=== PATIENT | male | born 1930 | race Caucasian/White ===

== ENCOUNTER 2017-05-18 17:36 | Emergency (ER) | payer MEDICARE ==
[~2017-05-18 17:36] MED LIST: AMI200 PO; DILCD120 PO; IRBE75TA4 PO; TOBOD OD; TOBOD OS; WARF-12 PO
--- NOTE | 2017-05-18 17:52 | ER Report ---
History and Physical Time Seen By MD: 17:51 Hx. of Stated Complaint: L SUBSTERNAL PAIN AND HEART BEATING FASTER, SLIGHT NAUSEA AND PALPITATIONS HPI/ROS CHIEF COMPLAINT: Epigastric pain HISTORY OF PRESENT ILLNESS: 86-year-old male patient presents to emergency room with complaint of epigastric pain. Patient states this been going on for the past 3 days. States he hasn't had any chest pain but feels like it is right in the epigastric region. He states that he's had no nausea, vomiting, chest pain, shortness of breath. States nothing seems to make the pain better or worse. He has not taken any medication for this. Patient states that he believes he has a history of atrial fibrillation, but is not currently taking any medication for it. States that he was on Coumadin in the past but had been stopped so he could take Plavix. He states that was stopped couple years ago by his asset accountant with nothing restarted. REVIEW OF SYSTEMS: Respiratory: No cough, no dyspnea. Cardiovascular: No chest pain, no palpitations. Gastrointestinal: As noted above Musculoskeletal: No back pain. Allergies: Coded Allergies: No Known Allergies (Verified Allergy, Mild, 10/02/07) Home Meds Reported Medications Multivitamin (MULTI VITAMIN DAILY) 1 Each Tablet, 1 EACH PO 05/18/17 Fluticasone Prop 50 Mcg Ns (FLONASE 50 MCG NS) 16 Gm [place].susp 05/18/17 Montelukast Sodium (MONTELUKAST SODIUM) 10 Mg Tablet 05/18/17 Tamsulosin Hcl (TAMSULOSIN HCL) 0.4 Mg Cap.er.24h 05/18/17 Metoprolol Succinate (METOPROLOL SUCCINATE) 25 Mg Tab.er.24h 05/18/17 Losartan Potassium (LOSARTAN POTASSIUM) 50 Mg Tablet 05/18/17 Tobramycin Sulf (Tobrex 0.3%) 5 Ml Soln, 1 DROP OS Q4H 1 drop to the left eye 4 times per day 10/03/07 Discontinued Reported Medications Atorvastatin Calcium (ATORVASTATIN CALCIUM) 20 Mg Tablet 05/18/17 Amiodarone Hcl (Cordarone) 200 Mg Tab, 200 MG PO take one tab 4 times per day for 6 days then one tab 3 times per day for 7 days then one tab 2 times per day for 7 days then one tab daily thereafter 10/03/07 Warfarin Sodium (Coumadin) 5 Mg Tablet, 5 MG PO DAILY 10/03/07 Diltiazem Hcl (Cardizem Cd) 120 Mg Capcr, 120 MG PO QDAY 10/03/07 Past Medical/Surgical History Patient has a past medical history of atrial fibrillation, hypertension, prostate cancer, arthritis. Patient has a surgical history of cryotherapy for his prostate cancer. Reviewed Nurses Notes: Yes Constitutional Vital Sign - Last 24 Hours 05/18/17 05/18/17 05/18/17 05/18/17 17:46 17:46 17:51 18:00 Temp 98.8 Pulse 94 86 Resp 20 27 B/P (MAP) 185/99 185/99 (127) 133/69 (90) Pulse Ox 92 94 O2 Delivery Room Air 05/18/17 05/18/17 05/18/17 05/18/17 18:06 18:21 18:30 18:36 Pulse 74 71 ??? Resp 21 32 B/P (MAP) ???/??? (0765) Pulse Ox 95 93 05/18/17 05/18/17 05/18/17 05/18/17 18:41 18:49 18:56 19:00 Pulse 71 83 B/P (MAP) 147/83 (104) 185/96 (125) Pulse Ox 94 94 05/18/17 05/18/17 05/18/17 05/18/17 19:11 19:26 19:30 19:41 Pulse 74 78 79 B/P (MAP) 155/86 (109) Pulse Ox 91 92 93 05/18/17 05/18/17 19:48 19:54 Pulse 85 Resp 16 B/P (MAP) 158/79 (105) 159/89 (112) Pulse Ox 95 O2 Delivery Room Air Intake and Output 05/18/17 05/18/17 05/19/17 15:00 23:00 07:00 Intake Total 1000 ml Balance 1000 ml Physical Exam General Appearance: The patient is alert, has no immediate need for airway protection and no current signs of toxicity. ENT: Tympanic membranes are pearly-dowling, auditory canals are patent, mucous membranes are moist. Respiratory: Chest is non tender, lungs are clear to auscultation. Cardiac: regular rate and rhythm Gastrointestinal: Abdomen is soft and non tender, no masses, bowel sounds are hyperactive. Musculoskeletal: Neck: Neck is supple and non tender. Extremities have full range of motion and are non tender. Skin: No rashes or lesions. DIFFERENTIAL DIAGNOSIS: After history and physical exam differential diagnosis was considered for gastroenteritis, [place], pneumonia. Medical Decision Making Data Points Result Diagram: 05/18/175 05/18/171754 Laboratory Hematology Test 05/18/17 17:55 Red Blood Count 3.97 M/uL (4.00-5.60) Mean Corpuscular Volume 97.5 fL (80.0-96.0) Mean Corpuscular Hemoglobin 32.6 pg (26.0-33.0) Mean Corpuscular Hemoglobin Concent 33.4 g/dL (32.0-36.0) Red Cell Distribution Width 13.1 % (11.5-14.5) Mean Platelet Volume 8.3 fL (7.2-11.1) Neutrophils (%) (Auto) 67.0 % (39.4-72.5) Lymphocytes (%) (Auto) 19.7 % (17.6-49.6) Monocytes (%) (Auto) 11.6 % (4.1-12.4) Eosinophils (%) (Auto) 1.2 % (0.4-6.7) Basophils (%) (Auto) 0.5 % (0.3-1.4) Nucleated RBC Relative Count (auto) 0.0 /100WBC Neutrophils # (Auto) 5.0 K/uL (2.0-7.4) Lymphocytes # (Auto) 1.5 K/uL (1.3-3.6) Monocytes # (Auto) 0.9 K/uL (0.3-1.0) Eosinophils # (Auto) 0.1 K/uL (0.0-0.5) Basophils # (Auto) 0.0 K/uL (0.0-0.1) Nucleated RBC Absolute Count (auto) 0.00 K/uL Sodium Level 139 mmol/L (137-145) Potassium Level 4.8 mmol/L (3.5-5.0) Chloride Level 104 mmol/L (98-107) Carbon Dioxide Level 25 mmol/L (22-30) Blood Urea Nitrogen 33 mg/dl (9-21) Creatinine 1.30 mg/dl (0.66-1.25) Glomerular Filtration Rate Calc 52.1 Random Glucose 121 mg/dl (75-110) Calcium Level 10.3 mg/dl (8.4-10.2) Total Bilirubin 0.5 mg/dl (0.2-1.3) Aspartate Amino Transf (AST/SGOT) 25 U/L (0-35) Alanine Aminotransferase (ALT/SGPT) 34 U/L (0-56) Alkaline Phosphatase 72 U/L (0-126) Troponin I 0.015 ng/ml Total Protein 7.5 gm/dl (6.3-8.2) Albumin 4.2 g/dl (3.5-5.0) Chemistry Test 05/18/17 17:55 White Blood Count 7.5 k/uL (4.5-11.0) Red Blood Count 3.97 M/uL (4.00-5.60) Hemoglobin 12.9 g/dL (14.0-18.0) Hematocrit 38.6 % (42.0-52.0) Mean Corpuscular Volume 97.5 fL (80.0-96.0) Mean Corpuscular Hemoglobin 32.6 pg (26.0-33.0) Mean Corpuscular Hemoglobin Concent 33.4 g/dL (32.0-36.0) Red Cell Distribution Width 13.1 % (11.5-14.5) Platelet Count 183 K/uL (150-450) Mean Platelet Volume 8.3 fL (7.2-11.1) Neutrophils (%) (Auto) 67.0 % (39.4-72.5) Lymphocytes (%) (Auto) 19.7 % (17.6-49.6) Monocytes (%) (Auto) 11.6 % (4.1-12.4) Eosinophils (%) (Auto) 1.2 % (0.4-6.7) Basophils (%) (Auto) 0.5 % (0.3-1.4) Nucleated RBC Relative Count (auto) 0.0 /100WBC Neutrophils # (Auto) 5.0 K/uL (2.0-7.4) Lymphocytes # (Auto) 1.5 K/uL (1.3-3.6) Monocytes # (Auto) 0.9 K/uL (0.3-1.0) Eosinophils # (Auto) 0.1 K/uL (0.0-0.5) Basophils # (Auto) 0.0 K/uL (0.0-0.1) Nucleated RBC Absolute Count (auto) 0.00 K/uL Glomerular Filtration Rate Calc 52.1 Calcium Level 10.3 mg/dl (8.4-10.2) Total Bilirubin 0.5 mg/dl (0.2-1.3) Aspartate Amino Transf (AST/SGOT) 25 U/L (0-35) Alanine Aminotransferase (ALT/SGPT) 34 U/L (0-56) Alkaline Phosphatase 72 U/L (0-126) Troponin I 0.015 ng/ml Total Protein 7.5 gm/dl (6.3-8.2) Albumin 4.2 g/dl (3.5-5.0) EKG/Imaging EKG Interpretation 12 lead EKG: Rhythm: Atrial fibrillation [place]: normal QRS: Left bundle branch block ST segments: normal Imaging Abdomen 2 views: HISTORY: Abdominal pain x3 days. COMPARISON: None. FINDINGS: Air is present in both large and small bowel without specific dilatation. There are no air-fluid levels present. No free air is identified. Moderate to large volume of stool is present throughout the colon, query symptoms of constipation. There are no obvious calcifications over the kidneys or along the expected course of the ureters. Degenerative changes are present in the lumbar spine. Scoliosis convex to the right is present. Right hip prosthesis is in place with anatomic alignment of the components. IMPRESSION: 1. Gas present in both large and small bowel without evidence of obstruction. 2. Moderate to large amount stool in the colon, query symptoms of constipation. Report Dictated By: Swathi Wall MD at 05/18/2017 7:05 PM Report E-Signed By: Swathi Wall MD at 05/18/2017 7:07 PM Chest 2 views: HISTORY: Chest pain. COMPARISON: 09/12/2013 FINDINGS: Frontal and lateral chest: Heart size is within normal limits. Coronary stent is noted. Mediastinal contours are normal. Aorta is ectatic and there are atherosclerotic changes. Appearance is similar to the prior study. There is no focal infiltrate, pleural effusion or pneumothorax. Pulmonary vasculature is normal. Minimal streaky left basilar opacity is likely subsegmental atelectasis or scarring. Lungs are hyperexpanded Degenerative changes are present in the thoracic spine. IMPRESSION: 1. Minimal left basilar subsegmental atelectasis or scarring. There is no evidence of acute cardiopulmonary abnormality otherwise. 2. Pulmonary hyperexpansion, query obstructive pulmonary disease. Report Dictated By: Swathi Wall MD at 05/18/2017 7:02 PM Report E-Signed By: Swathi Wall MD at 05/18/2017 7:05 PM ED Course/Re-evaluation ED Course Patient was admitted exam room, history of physical or obtained. Differential diagnoses were considered. On examination patient had some tenderness in the bilateral lower quadrants, heart was regular with no palpable chest pain. A CBC , CMP, troponin, EKG, chest x-ray, two-view x-ray of the abdomen were done. EKG showed atrial fibrillation with a left bundle branch block. CBC was unremarkable , CMP was also unremarkable. Troponin was negative. Chest x-ray was also negative. I discussed findings with the patient and his . I believe that with the x-ray of the abdomen being consistent with constipation that is likely the cause as the gas patient has which is causing the discomfort. I discussed this with the patient is . We'll go ahead and treat him for constipation with magnesium citrate. He is to take that tomorrow morning and return to emergency room if condition worsens. He is follow-up with his primary care provider in the next week. Patient and his verbalized understanding and agreement. Decision to Disposition Date: May 18, 2017 Decision to Disposition Time: 19:44 Depart Departure Latest Vital Signs Vital Signs Date Time Temp Pulse Resp B/P (MAP) Pulse Ox O2 Delivery O2 Flow Rate FiO2 05/18/17 19:54 85 16 159/89 (112) 95 Room Air 05/18/17 17:46 98.8 Impression: Primary Impression: Constipation Condition: Improved Disposition: HOME OR SELF-CARE Referrals: NOHE[facility] (PCP) Patient Instructions: Constipation (ED) Additional Instructions: Increase fluid intake. Get plenty of rest. Take the Mag Citrate tomorrow morning. Follow up with your primary care provider in the next week. Increase exercise. Return to the ER if condition worsens. Continue with your current diet. Problem Qualifiers Primary Impression: Constipation Constipation type: unspecified constipation type Qualified Codes: K59.00 - Constipation, unspecified NIMCO CELESTIN May 18, 2017 17:52
[2017-05-18] MEDS ORDERED: NS(*) 0.9% 1000 ML BAG 1,000 ML IV ONE (18:12)
[2017-05-18] MEDS ORDERED: ASPIRIN 81 MG CHEW PO ONE (18:15)
[2017-05-18 18:20] LABS: PLATELET COUNT, AUTOMATED 183 K/uL (150-450)
[2017-05-18] MEDS ORDERED: ATOR20TA65 (18:51)
[2017-05-18] MEDS ORDERED: MONT10TA4 (18:51)
[2017-05-18] MEDS ORDERED: LOSA50TA72 (18:51)
[2017-05-18] MEDS ORDERED: FLUT16SP19 (18:51)
[2017-05-18] MEDS ORDERED: METO25TA23 (18:51)
[2017-05-18] MEDS ORDERED: TAMS0.4C70 (18:51)
[2017-05-18] MEDS ORDERED: MULT1TAB64 PO (18:52)
--- NOTE | 2017-05-18 19:09 | RADIOLOGY IMAGING REPORT ---
FAC[place] [facility] [place] NAME: Jamal Mcdaniels : 1930 MR: [id number] V: [id number] EXAM DATE: ORDERING PHYSICIAN: NIMCO CELESTIN TECHNOLOGIST: Location: [facility] [place] Patient: Jamal Mcdaniels : 1930 Visit/Account:[id number] Date of Sevice: 05/18/2017 Chest 2 views: HISTORY: Chest pain. COMPARISON: 09/12/2013 FINDINGS: Frontal and lateral chest: Heart size is within normal limits. Coronary stent is noted. Med iastinal contours are normal. Aorta is ectatic and there are atherosclerotic changes. Appearance is s imilar to the prior study. There is no focal infiltrate, pleural effusion or pneumothorax. Pulmonary vasculature is normal. Minimal streaky left basilar opacity is likely subsegmental atelectasis or sca rring. Lungs are hyperexpanded Degenerative changes are present in the thoracic spine. IMPRESSION: 1. Minimal left basilar subsegmental atelectasis or scarring. There is no evidence of acute cardiopul monary abnormality otherwise. 2. Pulmonary hyperexpansion, query obstructive pulmonary disease. Report Dictated By: Swathi Wall MD at 05/18/2017 7:02 PM Report E-Signed By: Swathi Wall MD at 05/18/2017 7:05 PM WSN:[id number]
--- NOTE | 2017-05-18 19:10 | RADIOLOGY IMAGING REPORT ---
FACILITY: [facility] PATIENT NAME: Jamal Mcdaniels : 1930 MR: [id number] V: [id number] EXAM DATE: ORDERING PHYSICIAN: NIMCO CELESTIN TECHNOLOGIST: Location: [facility] Patient: Jamal Mcdaniels : 1930 Visit/Account:[id number] Date of Sevice: 05/18/2017 Abdomen 2 views: HISTORY: Abdominal pain x3 days. COMPARISON: None. FINDINGS: Air is present in both large and small bowel without specific dilatation. There are no air- fluid levels present. No free air is identified. Moderate to large volume of stool is present through out the colon, query symptoms of constipation. There are no obvious calcifications over the kidneys or along the expected course of the ureters. Degenerative changes are present in the lumbar spine. Scoliosis convex to the right is present. Right hip prosthesis is in place with anatomic alignment of the components. IMPRESSION: 1. Gas present in both large and small bowel without evidence of obstruction. 2. Moderate to large amount stool in the colon, query symptoms of constipation. Report Dictated By: Swathi Wall MD at 05/18/2017 7:05 PM Report E-Signed By: Swathi Wall MD at 05/18/2017 7:07 PM WSN:[id number]
[2017-05-18] MEDS ORDERED: MAGNESIUM CITRATE 300 ML BTL PO ONE (19:45)
[2017-05-18 19:54] VITALS: BP 159/89
--- NOTE | 2017-05-19 13:13 | EKG ---
FACILITY: [facility] [place] PATIENT NAME: SAMMI KHAN : [id number] MR: [id number] V: [id number] EXAM DATE: ORDERING PHYSICIAN: NIMCO CELESTIN TECHNOLOGIST: Test Reason : Blood Pressure : / mmHG Vent. Rate : 085 BPM Atrial Rate : 084 BPM P-R Int : 000 ms QRS Dur : 130 ms QT Int : 380 ms P-R-T Axes : 000 033 100 degrees QTc Int : 452 ms Sinus rhythm Left bundle branch block Abnormal ECG When compared with ECG of 28-DEC-2014 14:02, Vent. rate has increased BY 31 BPM Confirmed by WESTLEY TRAYLOR ([id number]) on 05/20/2017 3:02:21 PM Referred By: Confirmed By:WESTLEY TRAYLOR
== END 2017-05-18 20:00 | disposition home or self-care (01) ==
LOC: ER 17:49
DX: K59.00 Constipation, unspecified (principal)
CPT/HCPCS: 71020; 74020; 84484; 85025; 93005; 96360; 99284; A9270; J7030; 82040; 82247; 82310; 82374; 82435; 82565; 82947; 84075; 84132; 84155; 84295; 84450; 84460; 84520

== ENCOUNTER → 2017-09-28 | Outpatient (CLI) | payer MEDICARE ==
[~2017-09-28] MED LIST changes: +ATOR20TA65; +FLUT16SP19; +LOSA50TA72; +METO25TA23; +MONT10TA4; +MULT1TAB64 PO; +TAMS0.4C70
[2017-09-28 10:36] LABS: PLATELET COUNT, AUTOMATED 192 K/uL (150-450)
== END ==
LOC: LAB 09:59
PROVIDERS: ATTEND Physician Assistant Medical
DX: E55.9 Vitamin D deficiency, unspecified (principal); I12.9 Hypertensive chronic kidney disease with stage 1 through stage 4 chronic kidney disease, or unspecified chronic kidney disease; N18.3 Chronic kidney disease, stage 3 (moderate); K86.9 Disease of pancreas, unspecified; R97.20 Elevated prostate specific antigen [PSA]; N40.1 Benign prostatic hyperplasia with lower urinary tract symptoms; N13.8 Other obstructive and reflux uropathy
CPT/HCPCS: 36415; 81001; 82040; 82150; 82247; 82306; 82310; 82374; 82435; 82465; 82565; 82947; 83690; 83718; 84075; 84132; 84153; 84155; 84295; 84450; 84460; 84478; 84520; 85025

== ENCOUNTER → 2017-12-27 | Outpatient (CLI) | payer MEDICARE ==
[2017-12-27 10:13] LABS: PLATELET COUNT, AUTOMATED 184 K/uL (150-450)
== END ==
LOC: LAB 09:48
PROVIDERS: ATTEND Internal Medicine Nephrology
DX: N18.3 Chronic kidney disease, stage 3 (moderate) (principal); I10 Essential (primary) hypertension; D64.9 Anemia, unspecified; E55.9 Vitamin D deficiency, unspecified
CPT/HCPCS: 36415; 82040; 82306; 82310; 82374; 82435; 82565; 82570; 82947; 84100; 84132; 84156; 84295; 84520; 85025

== ENCOUNTER → 2017-12-31 | Outpatient (REF) | payer MEDICARE | LOC: ZZSENDIN 15:10 | PROVIDERS: ATTEND Internal Medicine Nephrology | DX: I12.9 Hypertensive chronic kidney disease with stage 1 through stage 4 chronic kidney disease, or unspecified chronic kidney disease (principal); N18.3 Chronic kidney disease, stage 3 (moderate); D64.9 Anemia, unspecified; E55.9 Vitamin D deficiency, unspecified | CPT/HCPCS: 82306 ==

== ENCOUNTER → 2018-06-10 | Outpatient (CLI) | payer MEDICARE ==
[~2018-06-10] MED LIST changes: +ACET500T68 PO; +B CO PO; +GABA-549 PO; +LOSA25TA57 PO; -LOSA50TA72; +LOSA50TA80; +OMEG10007 PO; +VANC1PLA3 IV
== END ==
LOC: AMB 12:43
PROVIDERS: ATTEND Nurse Practitioner
DX: I96 Gangrene, not elsewhere classified (principal)
CPT/HCPCS: A0425; A0426